=== PATIENT | male | born 1940 | race Caucasian/White ===

== ENCOUNTER 2018-10-26 15:14 | Inpatient (IN) | payer OTHER, BC ==
[~2018-10-26] VITALS: Ht 167.6 cm; Wt 89.8 kg
[2018-10-26 15:15] VITALS: BP 142/96
[2018-10-26 15:42] LABS: BASOPHILS 0.6 % (0.0-2.0); EOSINOPHILS 1.4 % (0.0-3.0); HEMATOCRIT 40.4 % (42.0-52.0); HEMOGLOBIN 13.7 gm/dL (14.0-18.0); LYMPHOCYTES 15.2 % (24.0-44.0); MCH 32.2 pg (26.0-34.0); MCV 94.9 fL (80.0-100.0); MONOCYTES 7.4 % (1.0-8.0); PLATELET COUNT 190 thou/uL (150-400); POLYS 75.4 % (36.0-66.0); RBC 4.25 mil/uL (4.50-6.00); RDW 14.5 % (10.5-14.5); WBC 9.2 thou/uL (4.0-11.0)
[2018-10-26 15:50] LABS: ANION GAP 8 mmol/L (7-16); BUN 28 mg/dL (7-18); CALCIUM 9.4 mg/dL (8.5-10.1); CHLORIDE 103 mmol/L (98-107); CO2 25 mmol/L (21-32); CREATININE 1.2 mg/dL (0.7-1.3); GLUCOSE 108 mg/dL (74-106); POTASSIUM 4.9 mmol/L (3.5-5.1); SODIUM 136 mmol/L (136-145)
[2018-10-26 16:00] LABS: ALBUMIN 3.8 g/dL (3.4-5.0); SGOT 25 U/L (15-37); SGPT 29 U/L (30-65); TOTAL BILIRUBIN 0.7 mg/dL (<0.1-1.0); TOTAL PROTEIN 8.2 g/dL (6.4-8.2); TROPONIN-I <0.06 ng/mL (<0.06)
[2018-10-26 16:06] LABS: APTT 29.4 Seconds (24.5-32.8); INR 1.2
[2018-10-26] MEDS ORDERED: ELIQUIS5 MG PO (17:04)
[2018-10-26 18:10] VITALS: BP 142/90
[2018-10-26 18:20] VITALS: BP 142/90
[2018-10-26 18:35] LABS: CHOLESTEROL 138 mg/dL (<200); HDL CHOLESTEROL 32 mg/dL (>40); LDL CHOLESTEROL 90 mg/dL (<100); SERUM ASSESSMENT Clear; TC:HDL 4.3 Ratio (Not establshd); TRIGLYCERIDE 82 mg/dL (<150); VLDL 16 mg/dL (<40)
[2018-10-26 18:48] VITALS: BP 170/87
--- NOTE | 2018-10-26 20:28 | NUR ---
PATIENT REFUSING TO ANSWER ADMISSION QUESTIONS, APPEARS ANGRY. PT SAID "I WONT ANSWER YOUR QUESTION". ATTEMPTED BEDSIDE SWALLOW EVAL. BUT PT REFUSING.
--- NOTE | 2018-10-26 20:44 | NUR ---
PATIENT IS REFUSING TELE AND PART OF ADMISION. PATIENT REFUSES TO FOLLOW RULES OF FALL PRECAUSIONS. PATIENT REFUSES TO ANSWER QUESTIONS. AUDREY
--- NOTE | 2018-10-26 21:16 | NUR ---
PATIENT IS REFUSING ASSESSMENT AND ADMISTION QUESTIONS. PATIENT IS ALERT AND ORIENTED. PATIENT IS REFUSING TELE. [facility]
[2018-10-26] MEDS ORDERED: LIPITOR10 MG PO (23:14)
[2018-10-26] MEDS ORDERED: MELATONIN3 MG PO (23:14)
[2018-10-26] MEDS ORDERED: AMIODARONE HCL100 MG PO (23:14)
[2018-10-26] MEDS ORDERED: FLOMAX0.4 MG PO (23:15)
[2018-10-26] MEDS ORDERED: TOPROL XL25 MG PO (23:15)
[2018-10-26] MEDS ORDERED: LASIX 20 MG TAB20 MG PO (23:16)
[2018-10-26] MEDS ORDERED: DIGOXIN125 MCG PO (23:16)
[2018-10-26 23:55] VITALS: BP 139/65
--- NOTE | 2018-10-27 06:13 | NUR ---
REFUSED [facility] MORNING ASSESSMENT AND IV FLUIDS. PENDING MRI AND PATIENT WANTS TO GO HOME. WCM. PATIENT IS RESTING COMFORTABLY IN BED.
[2018-10-27 08:01] VITALS: BP 146/68
[2018-10-27 12:19] VITALS: BP 145/74; BP 146/61
[2018-10-27 12:20] VITALS: BP 162/72
--- NOTE | 2018-10-27 13:35 | HC ---
[facility] [place] [address] CONSULTATION Name: PATMIGUEL ÁNGEL Room #: 351-P ADM IN M.R.#: [id number] Admission: 10/26/18 ������������������ Attend Phys: Dyan Wooten Discharge: ������������������ Date of : 36 Report #: [id number] THIS REPORT FOR: //name// CC: Dyan Wooten NO PCP DATE OF SERVICE: 10/27/2018 HISTORY OF PRESENT ILLNESS: The patient is an 78-year-old male who yesterday was found by his slumped against the garage door. When she found him, she saw that his face seemed asymmetric and his speech was slurred. She called the 911. They asked her to do some testing. She remembers him holding up both arms and one arm began to droop, but he could not remember which arm this was or which side of his face seemed asymmetric. The patient came to the Emergency Room. He is not a candidate for TPA because he is on Eliquis. However, by the time he came up to his room, which may have been anywhere from 4-6 hours later, his symptoms had completely resolved. The patient states he has never had an episode like that before. He has never had a stroke. He is seen by Dr. Tomas, who is a manager home at [facility]. PAST MEDICAL HISTORY: Atrial fibrillation. PAST SURGICAL HISTORY: Noncontributory. MEDICATIONS: Eliquis 5 mg daily, amiodarone 400 mg daily, atorvastatin 40 mg at bedtime, Coreg 3.125 mg b.i.d., digoxin 125 mcg daily, Flomax 0.4 mg at bedtime, melatonin 3 mg at bedtime. ALLERGIES: None. PHYSICAL EXAMINATION: VITAL SIGNS: Temperature 36.8, pulse rate 53, respiratory rate 20, blood pressure 146/68, bedside pulse oximetry 98% on room air. LAB WORK: Hematology: White blood cell count 9.2, hemoglobin 13.7, hematocrit 40.4, INR 1.2. Chemistry: Sodium 136, potassium 4.9, chloride 103, carbon dioxide 25, BUN 28, creatinine 1.2, glucose 108. Cholesterol 138, triglycerides 82. IMAGING: CT scan of the head, CT angiogram and carotid Doppler are unremarkable. The MRI of the head is pending. NEUROLOGIC: Cranial nerves 2-12 are grossly intact; however, the patient may have a slight right facial droop. Motor exam demonstrates symmetrical strength in all 4 extremities. No pronator drift is present. Fine finger movements are essentially normal and were performed rapidly; however, [place] [address] CONSULTATION Name: MIGUEL ÁNGEL STEWART Room #: 351-P [place] IN M.R.#: [id number] Admission: 10/26/18 ������������������ Attend Phys: Dyan Wooten Discharge: ������������������ Date of : 36 Report #: [id number] bit slower on the right as compared to the left. No appreciable weakness was noted in the lower extremities. Reflexes are symmetrical throughout. Coordination reveals intact finger to nose. IMPRESSION: This patient may have had a very small stroke. We are still waiting for the MRI head results. If a stroke is seen on the MRI and if stroke is acute, then perhaps aspirin 81 mg daily should be added until the patient is able to see his manager home, Dr. Tomas. If no stroke is seen, I would not change his medication at this time. I thank you for your kind referral of the patient. ��������������������������������������������� <ELECTRONICALLY SIGNED> ���������������������������������������� By: Verna Handley DO ��������������������������������������������� 10/27/18 1335 1054 1214 Verna Handley DO /nt
[2018-10-27 16:44] VITALS: BP 162/72
--- NOTE | 2018-10-27 18:27 | NUR ---
ASSUMED CARE OF PATIENT AT 0715, REPORT RECEIVED FROM [place]ON/RN. PATIENT ALERT AND ANGRY THIS AM, VERY INAPPROPRIATE COMMENTS THIS AM. PATIENT DID LET ME DO ASSESSMENT, BYT REFUSED ALL MEDS. THIS RN NOTIFIED DR NOVAK OF PATIENT REFUSING MEDS. PATIENT DID GO DOWN FOR MRI OF HEAD, RESULTS SHOWED INFARCT, DR NOVAK NOTIFIED, HE WANTS TO NOT DISCHARGE PATIENT, WILL BE IN AROUND 1530 TO TALK TO THE FAMILY. SON AND PT'S AT THE BEDSIDE. PATIENT STATES HE IS DISCHARGING REGARD LESS AND THAT IS HIS RIGHT. DR HERNANDEZ CONSULTED, AND SAW THE PATIENT, THIS RN NOTIFIED DR HERNANDEZ OF MRI RESULTS. SHE ALREADY SAW THE REPORT AND STATES SHE WOULD ONLY ADD ASA IF PATIENT TALKING MEDS REGULARLY AT HOME, AND WORK UP IS DONE, ASK DR NOVAK TO REVIEW HER AMENDED NOTE. DR NOVAK HERE AROUND 1600, SPOKE WITH FAMILY, AND ORDER PUT IN TO DISCHARGE THE PATIENT TO HOME, NO NEW MEDS ORDERED FOR DISCHARGE. THIS RN WENT OVER DISCHARGE INSTRUCTIONS AND ALL PERSONAL BELONGINGS SENT WITH THE PATIENT AND FAMILY. INSTRUCTIONS AND
--- NOTE | 2018-10-29 09:02 | EKG ---
[place] [address] [place] [address] ELECTROCARDIOGRAM REPORT Name: MIGUEL ÁNGEL STEWART Room #: 351-P [facility] IN M.R.#: [id number] ������������������ Admission: 10/26/18 ������������������ Attend Phys: Dyan Wooten Discharge: 10/27/18 ������������������ Date of : 36 Report #: [id number] ����������������������������������������������������������������� [id number] THIS REPORT FOR: //name// [facility] ED Test Date: 2018-10-26 Test Time: 15:44:27 Pat Name: MIGUEL ÁNGEL STEWART Department: Room: [facility] Gender: M Thoracic Medicine Physician: [place] : 1940 Requested By: Miguel Ángel Hopper Order Number: [id number] MD: Twan Fleming Measurements Intervals [place] Rate: 58 P: -22 MS: 190 QRS: -14 QRSD: 89 T: 17 QT: 449 QTc: 442 Interpretive Statements Sinus rhythm Minimal ST depression No previous ECG available for comparison Electronically Signed On 10-29-2018 9:02:27 CDT by Twan Fleming [email or web address] ��������������������������������������������� <ELECTRONICALLY SIGNED> ���������������������������������������� By: Twan Fleming MD, [facility] ��������������������������������������������� 10/29/18 0902 1544 1544 Twan Fleming MD, FACC /EPI
== END 2018-10-27 17:03 | disposition home or self-care (01) | DRG 66 ==
LOC: ER 15:14 → EROBS 16:26 → 3W 18:45
PROVIDERS: Emergency Medicine; ADMIT Hospitalist
DX: I63.9 Cerebral infarction, unspecified (principal); R27.0 Ataxia, unspecified; R47.1 Dysarthria and anarthria; I48.91 Unspecified atrial fibrillation; E78.5 Hyperlipidemia, unspecified; I10 Essential (primary) hypertension; R47.81 Slurred speech; Z79.899 Other long term (current) drug therapy
CPT/HCPCS: 10879